=== PATIENT | female | born 1990 | race Caucasian/White ===

== ENCOUNTER 2017-06-18 08:26 | Emergency (ER) | payer BC ==
[2017-06-18] MEDS ORDERED: METOCLOPRAMIDE 10 MG/2 ML VIAL IVP ONE (09:11)
[2017-06-18] MEDS ORDERED: KETOROLAC 30 MG/1 ML SDV IVP ONE (09:11)
[2017-06-18] MEDS ORDERED: NS 1,000 ML IV ONE (09:11)
[2017-06-18] MEDS ORDERED: DEXAMETHASONE 10 MG/ML VIAL IVP ONE (09:11)
--- NOTE | 2017-06-18 09:15 | EDPHY ---
H & P Time Seen by Provider: 06/18/17 08:55 HPI/ROS: CHIEF COMPLAINT: Headache HISTORY OF PRESENT ILLNESS: Patient is had symptoms since Thursday. She just finished her menstrual period yesterday. On Thursday she started getting headache in her forehead and behind her eyes with blurry vision and feeling that she had floaters. She saw her see supervisor Thursday shoulder her vision was normal but she continued to feel dizzy. She went to urgent care yesterday because she had some nausea and vomiting and the [facility] put her on Zofran Augmentin and Sudafed for possible sinusitis. She presents today with continued symptoms. Headache is moderate. Worse with light. Not associated with fever or chills or recent head trauma or injury. Does not radiate. REVIEW OF SYSTEMS: Eye: Visual acuity patient states is normal. ENT: no sore throat or ear symptoms. Cardiac: no chest pain or syncope Pulmonary: no cough or SOB Abdomen: The vomiting but the no abdominal pain, some diarrhea. Musculoskeletal: no back pain or neck stiffness Skin: no rash Neuro: HPI, no vertigo or ataxia. No weakness or numbness in extremities. Constitutional: no fever : no urinary symptoms A comprehensive 10 point review of systems is otherwise negative aside from elements mentioned in the history of present illness. PAST MEDICAL HISTORY: Negative Social history: Nonsmoker no PCP General Appearance: Alert and conversant, cooperative. Eyes: No scleral icterus. Extraocular motion intact with no proptosis. ENT, Mouth: Normal mucous membranes. No trismus, normal pharynx, no facial swelling or tenderness over forehead or maxilla. No temporal artery tenderness. Globes are soft. Respiratory: Normal respiratory effort, breath sounds equal, lungs are clear to auscultation. Cardiovascular: Regular rate and rhythm. Gastrointestinal: Abdomen is soft and non tender. Neurological: Alert and oriented x3. Normally conversant. Face symmetric, normal movement and sensation in all extremities. No pronator drift, normal [id number] bilaterally. Fluent speech. Skin: Warm and dry, no rashes. Musculoskeletal: Supple neck without meningeal signs. Psychiatric: Not agitated. Emergency Department course/MDM: Patient presents with symptoms which are classic for migraine headache with photophobia and visual symptoms, associated with her menstrual cycle. I think stroke or subarachnoid or PAN WASHER HAND infection would be unlikely. Reglan 10 mg, Benadryl 25 mg, Toradol 30 mg, dexamethasone 10 mg IV. Think meningitis or sinusitis are unlikely. I think that temp oral arteritis or primary ophthalmological problem is unlikely. 955: sleeping, easily awakened. 1100: Feels better but symptoms. CT scanning discussed and consented. 1140: CT reported as negative, patient feels less nausea has some headache. Acetaminophen orally, Dilaudid 0.5 mg IV. 1400: Feels better and says feel better; explained I do not think there is an acute emergent medical condition. She is eating food. Patient states comfortable trying to go home with outpatient management at the time. Smoking Status: Never smoked Constitutional: Initial Vital Signs Temperature (C) 37.0 C 06/18/17 08:32 Heart Rate 79 06/18/17 08:32 Respiratory Rate 18 06/18/17 08:32 Blood Pressure 121/87 H 06/18/17 08:32 O2 Sat (%) 95 06/18/17 08:32 O2 Delivery Mode Room Air Allergies/Adverse Reactions: No Known Allergies Allergy (Unverified 06/18/17 08:31) Home Medications: Medication Instructions Recorded Augmentin 1000MG ER Tablet (*) 06/18/17 SUMAtriptan [Imitrex 25 MG (*)] 25 mg PO Q4H PRN #6 tab 06/18/17 Zofran 06/18/17 Medical Decision Making - Diagnostics Imaging Results: Imaging Impressions Head CT 06/18/17 11:00 Impression: No acute intracranial findings. Findings discussed with KALEB SIMMS 06/18/2017 at 12:33. Differential Diagnosis: Differential diagnosis considered for headache including but not limited to subarachnoid hemorrhage, migraine headache, tension headache and infectious causes such as meningitis, pharyngitis and sinusitis. - Data Points Medications Given: Discontinued Medications Acetaminophen (Tylenol) 1,000 mg PO EDNOW ONE Stop: 06/18/17 12:44 Last Admin: 06/18/17 13:07 Dose: 1,000 mg Dexamethasone (Decadron Injection) 10 mg IVP EDNOW ONE Stop: 06/18/17 09:12 Last Admin: 06/18/17 09:23 Dose: 10 mg Diphenhydramine HCl (Benadryl Injection) 25 mg IVP EDNOW ONE Stop: 06/18/17 09:12 Last Admin: 06/18/17 09:23 Dose: 25 mg Hydromorphone HCl (Dilaudid) 0.5 mg IVP EDNOW ONE Stop: 06/18/17 12:44 Last Admin: 06/18/17 13:08 Dose: 0.5 mg Sodium Chloride (Ns) 1,000 mls @ 0 mls/hr IV ONCE ONE; Wide Open PRN Reason: Protocol Stop: 06/18/17 09:12 Last Admin: 06/18/17 09:23 Dose: 1,000 mls Ketorolac Tromethamine (Toradol) 30 mg IVP EDNOW ONE Stop: 06/18/17 09:12 Last Admin: 06/18/17 09:23 Dose: 30 mg Metoclopramide HCl (Reglan Injection) 10 mg IVP EDNOW ONE Stop: 06/18/17 09:12 Last Admin: 06/18/17 09:23 Dose: 10 mg Promethazine HCl (Phenergan) 12.5 mg IVP EDNOW ONE Stop: 06/18/17 11:01 Last Admin: 06/18/17 11:19 Dose: 12.5 mg Departure - Departure Disposition: Home, Routine, Self-Care Clinical Impression: Acute headache Qualifiers: Headache type: unspecified Intractability: not intractable Qualified Code(s): R51 - Headache Condition: Good Instructions: Acute Headache (ED) Additional Instructions: CT scan does not show evidence of sinusitis, discontinue antibiotics. Referrals: Mariya West MD [Medical Doctor] - As per Instructions Terrence Jacobsen DO [Doctor of Osteopathy] - As per Instructions (Neurology follow -up) Prescriptions: SUMAtriptan [Imitrex 25 MG (*)] 25 mg PO Q4H PRN #6 tab PRN Reason: Headache
[2017-06-18] MEDS ORDERED: PROMETHAZINE HCL 25 MG/ML INJ IVP ONE (11:00)
[2017-06-18] MEDS ORDERED: ACETAMINOPHEN 500 MG TAB PO ONE (12:43)
[2017-06-18] MEDS ORDERED: HYDROmorphONE/DILAUDID 1 MG/ML SYR IVP ONE (12:43)
[2017-06-18 14:14] VITALS: BP 118/67; PULSE 69; RESP 18; TEMP 98.2; O2SAT 95
== END 2017-06-18 14:14 | disposition home or self-care (01) ==
DX: R51 Headache (principal); E86.9 Volume depletion, unspecified
CPT/HCPCS: 96374; J1100; J1170; J1200; J1885; J2550; J2765